=== PATIENT | male | born 1975 | race Caucasian/White ===

== ENCOUNTER 2017-05-28 14:50 | Emergency (ER) | payer SELFPAY ==
[~2017-05-28] VITALS: Ht 190.5 cm; Wt 87.8 kg
[2017-05-28 15:01] VITALS: PULSE 111; RESP 16; TEMP 97.5; O2SAT 99
--- NOTE | 2017-05-28 18:28 | PD ---
HPI Chief Complaint: Flank/Kidney Pain Time Seen by Provider: 18:09 Travel History International Travel<30 days: No Contact w/Intl Traveler<30days: No Traveled to known affect area: No History of Present Illness HPI patient is a 42-year-old male who presents emergency primary for evaluation of right flank pain which she states started 3 hours prior to me seeing him. Patient states that he has had pain like this before and states to kidney stone. He states he has not called his right him for this. States he has had some blood in the urine is not tried anything prior to arrival. Denies any chest pain shortness of breath endorses nausea and nonbloody and nonbilious emesis denies any diarrhea. He states his symptoms are severe, right flank, no radiation, associated with nausea with the above context [facility] Past Medical History Narrative Medical Kidney stones. Past Surgical History Narrative Surgical Denies Social History Tobacco Use: No Allergies-Medications (Allergen,Severity, Reaction): Coded Allergies: ketorolac (Verified Allergy, Intermediate, n/v, 05/28/17) tramadol (Verified Allergy, Intermediate, hives, 05/28/17) Review of Systems Except as stated in HPI: all other systems reviewed are Neg Physical Exam Narrative GENERAL: Well-developed well-nourished, appears in no obvious distress. SKIN: Focused skin assessment warm/dry. HEAD: Atraumatic. Normocephalic. EYES: Pupils equal and round. No scleral icterus. No injection or drainage. ENT: No nasal bleeding or discharge. Mucous membranes pink and moist. NECK: Trachea midline. No JVD. CARDIOVASCULAR: Regular rate and rhythm. No murmur appreciated. RESPIRATORY: No accessory muscle use. Clear to auscultation. Breath sounds equal bilaterally. GASTROINTESTINAL: Abdomen soft, non-tender, nondistended. Hepatic and splenic margins not palpable. No CVA tenderness.. MUSCULOSKELETAL: No obvious deformities. No clubbing. No cyanosis. No edema. NEUROLOGICAL: Awake and alert. No obvious cranial nerve deficits. Motor grossly within normal limits. Normal speech. PSYCHIATRIC: Appropriate mood and affect; insight and judgment normal. Data Data Last Documented VS Vital Signs Date Time Temp Pulse Resp B/P (MAP) Pulse Ox O2 Delivery O2 Flow Rate FiO2 05/28/17 15:01 97.5 111 16 99 Orders Orders Sodium Chloride 0.9% Flush (Ns Flush) (05/28/17 18:30) [facility] Medical Decision Making Medical Screen Exam Complete: Yes Emergency Medical Condition: Yes Differential Diagnosis Kidney stone, right flank pain, hematuria. Narrative Course Patient reports his identify as Reji Dumont, however when I first to try to identify him as I do at the beginning of every encounter the patient seemed to not be able to remember his last name. He took a prolonged period of time to give me his last name and may have rented off his own bracelet. Incidentally the patient looks identical to a patient I saw last week whose birthdate is exactly 1 year earlier than this patient, had the exact same presentation, the exact same allergies, and the exact same history. The patient also cannot provide ID The patient left AGAINST MEDICAL ADVICE after a dose of morphine denying a CAT scan at that time as well. Today during registration process this patient could not provide any photo identification. Both patient names underwent eforsce screening which came back negative. This patient tells me that he recently moved from [place] and has not yet established care with a regular physician. I informed this patient that I do not believe him to be who he says he is today. I offered to treat him medically but I am not inclined to give this patient any narcotics until he has proof of an emergent medical condition. I have ordered basic labs and a CAT scan of his abdomen to rule out emergent pathology and he initially agreed to this. He then started wandering the emergency department, he was in a back area where he could not be monitored. Security was called and the patient was found to be out of his gown now and fully dressed in no apparent distress and stated he wanted to leave AGAINST MEDICAL ADVICE. Nursing had him sign an AMA form and he ambulated from the emergency department in no distress. Diagnosis Primary Impression: Flank pain Disposition: 07 AGAINST MEDICAL ADVICE Bryan Alvarez MD May 28, 2017 18:28
[2017-05-28] MEDS ORDERED: SODIUM CHLORIDE 0.9% FLUSH 10 ML FLUSH IV FLUSH PRN (18:30)
== END 2017-05-28 18:56 | disposition left against medical advice (07) ==
LOC: PHED 14:50
DX: R10.9 Unspecified abdominal pain (principal); R31.9 Hematuria, unspecified; R11.2 Nausea with vomiting, unspecified; Z87.442 Personal history of urinary calculi; Z53.29 Procedure and treatment not carried out because of patient's decision for other reasons
CPT/HCPCS: 99281